=== PATIENT | male | born 1995 | race Caucasian/White ===

== ENCOUNTER 2017-09-30 13:15 | Inpatient (IN) | payer OTHER ==
--- NOTE | 2017-09-30 14:40 | RAD ---
SINGLE VIEW OF THE CHEST: COMPARISON: None. HISTORY: Diabetic ketoacidosis. FINDINGS: Single view of the chest shows a normal sized cardiomediastinal silhouette. There is no evidence of c onsolidation, mass, or pleural effusion. The bones are unremarkable. IMPRESSION: No evidence of acute cardiopulmonary disease. POS: [facility]
[2017-09-30 14:48] LABS: #Lymphocytes 1.6 thou/uL (1.20-3.40); #Monocytes 0.6 thou/uL (0.11-0.59); %Basophils 0.3 % (0.0-1.0); %Eosinophils 0.4 % (0.0-10.0); %Lymphocytes 17.1 % (28.0-48.0); %Monocytes 6.6 % (0.0-4.0); Hematocrit 49.2 % (42.0-52.0); Mean Platelet Volume 9.5 fL (7.4-10.4); White Blood Cell (WBC) Count 9.3 thou/uL (4.8-10.8)
[2017-09-30 14:57] LABS: Anion Gap 10 mmol/L (-14-95); Critical Call POC Critical Value; T. Carbon Dioxide 12.8 mmol/L (1.0-85.0); pH (Venous) 7.355 (7.35-7.45); vO2 Saturation-calc 98.4 % (0.0-100.0)
[2017-09-30] MEDS ORDERED: Ondansetron HCl/PF 4 MG/2 ML Vial ONE (15:12)
[2017-09-30 15:48] LABS: Bilirubin Negative (Negative); Blood, Urine Negative (Negative); Glucose, Urine (Dipstick) 100 mg/dL (Negative); Ketone, Urine > or equal to 80 mg/dL (Negative); Nitrite Negative (Negative); Protein, Urine (Dipstick) 30 mg/dL (Neg-Trace); Urobilinogen 0.2 mg/dL (0.2-1.0)
[2017-09-30 15:51] LABS: Bacteria/HPF None Seen HPF (None Seen); Hyaline Casts/LPF 0-3 HYALINE CAST LPF (0-3 Hyaline); RBC/HPF None Seen HPF (0-3); Squamous Epithelial None Seen HPF (0-3); WBC/HPF 0-3 HPF (0-3)
[2017-09-30] MEDS ORDERED: Calcium Gluconate 13.8 MEQ in Sodium Chloride 0.9% 100 ML IVPB SCH (16:15)
[2017-09-30 16:30] LABS: ALT (SGPT) 23 U/L (8-55); AST (SGOT) 21 U/L (5-34); Alkaline Phosphatase 75 U/L (Less than 750); Anion Gap 20 mmol/L (10-20); BUN (Urea Nitrogen) 8 mg/dL (8.9-20.6); Bilirubin, Total 1.1 mg/dL (0.2-1.2); Calc. Creatinine Clearance 0 mL/min (70-130); Calcium 9.2 mg/dL (7.8-10.44); Carbon Dioxide 17 mmol/L (22-29); Chloride 95 mmol/L (98-107); Estimated GFR-MDRD Greater than 90; Globulin 2.5 g/dL (2.4-3.5); Lipase 6 U/L (8-78); Protein, Total 6.9 g/dL (6.0-8.3)
[2017-09-30] MEDS ORDERED: D5 1/2 NS w/20 mEq KCL 1,000 ML ONE (17:18)
[2017-09-30] MEDS ORDERED: Insulin Regular 100 units/100 ml in NS IVPB SCH (17:30)
--- NOTE | 2017-09-30 21:18 | HP-2 ---
CODE STATUS: FULL. PRIMARY CARE PHYSICIAN: Fabiola zee. ATTENDING PHYSICIAN: Rc Case M.D. PGY1: Dannielle Villagomez D.O. CHIEF COMPLAINT: Nausea, vomiting, abdominal pain, and headache. HISTORY OF PRESENT ILLNESS: This is a 22-year-old male with past medical history of type 1 diabetes mellitus that presents with a 1 day history of generalized weakness, nausea, vomiting, abdominal pain, and headache. He said onset was around 1:00 p.m. yesterday. The patient has a history of being in DKA and admits to being noncompliant with checking blood glucose levels. He knows the signs and symptoms of DKA and decided to attempt self-treatment. He gave himself 30 units of NovoLog at home and drank ten 32 ounce bottles of water. The patient says he has been taking basal insulin, but he is noncompliant with mealtime insulin here recently due to excess stress. The patient started feeling worse and noted that there was some ketones in his urine , so he decided to present to the emergency department. He was given Zofran in the ED as well as 1 liter of normal saline. PAST MEDICAL HISTORY: Type 1 diabetes mellitus. PAST SURGICAL HISTORY: None. ALLERGIES: No known drug allergies. MEDICATIONS: The patient is on Novolin sliding scale insulin 1 unit for every 8 grams of carbohydrates as well as a Lantus equivalent 45 units at bedtime. FAMILY HISTORY: Noncontributory. SOCIAL HISTORY: The patient denies tobacco, alcohol, or drug use. 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 REVIEW OF SYSTEMS: A 12 point review of systems was performed, all were negative except as listed in the HPI. PHYSICAL EXAMINATION: VITAL SIGNS: Blood pressure 124/80, pulse 66, respiratory rate 18, T-max 97.6, pulse ox 100% on room air, current weight 80 kilograms. GENERAL: The patient is alert and oriented x3, no acute distress, well- developed, well-nourished, and thin. He is appropriately interactive. EYES: Extraocular muscles intact. ENT: The patient does have dry mucous membranes. NECK: Supple. CARDIOVASCULAR: Regular rate and rhythm. No murmur or gallops. Radial pulses 2+. RESPIRATORY: Normal effort, no retractions. Clear to auscultation bilaterally. SKIN: Skin is warm and dry. No cyanosis or lesions. ABDOMEN: Soft, nontender to palpation. Bowel sounds positive in all 4 quadrants. No masses or distention. EXTREMITIES: No clubbing, cyanosis or edema. MUSCULOSKELETAL: Structure within normal limit. Tone within normal limits. Muscle strength 5/5. The patient has full range of motions. NEUROLOGIC: No focal deficits. Sensation within normal limit. DTRs 4/4. Cranial nerves II-XII intact. GCS 15. PSYCHIATRIC: Appropriate. LABORATORY FINDINGS: 1. CBC reveals white blood cell count 9.3, hemoglobin 17.2, hematocrit 49.2, platelets 199. 2. CMP reveals sodium 128, potassium 3.9, chloride 95, bicarb 17, BUN 8, creatinine 0.89 and glucose of 116, calcium 9.2, total protein 6.9, albumin 4.4 , total bilirubin 1.1, AST 21, ALT 23, and alkaline phosphatase is 75. 3. Lipase 6. 4. UA reveals protein of 30, ketones greater than 80 and glucose of 100. 5. ABG: pH 7.35, pCO2 of 21.6 and O2 of 112. 6. Beta-hydroxybutyrate of 5.80. 7. EKG shows possible right bundle branch block. ASSESSMENT AND PLAN: This is a 22-year-old female with past medical history of diabetes mellitus type 1 that presents with nausea, vomiting, abdominal pain, and headache. 1. Diabetic ketoacidosis. The patient was admitted to [facility] and started on diabetic ketoacidosis protocol. We will transition off drip and to subcutaneous insulin once gap closes and bicarbonate increases. We will continue intravenous fluids per protocol and repeat basic metabolic panel q.4 hours. The patient will have q.1 hour Accu-Cheks while on the drip. Hemoglobin A1c is pending. 2. Hyponatremia. This is likely secondary to increase free water intake. We will continue to monitor basic metabolic panel and decrease free water intake at this time. 3. Type 1 diabetes mellitus. The patient takes sliding scale mealtime insulin as well as basal insulin. Once labs normalized, we will restart the patient on home dose. The patient will be transitioned to subcutaneous insulin and will be able to have an [employer] diet at that time. DISPOSITION AND LENGTH OF HOSPITAL STAY: Two days. Symptomatic medication will be provided. History and physical examination as well as management discussed with Dr. Rc Case. MTDD
[2017-09-30] MEDS ORDERED: NS 0.9% w/ 20 MEQ KCL 1,000 ML IV PRN ×2 (21:56)
[2017-09-30] MEDS ORDERED: Ondansetron HCl/PF 4 MG/2 ML Vial IVP PRN (21:56)
[2017-09-30] MEDS ORDERED: Acetaminophen 325 MG TAB PO PRN (21:56)
[2017-09-30] MEDS ORDERED: CCU Electrolyte Replacement 1 EACH IVPB ONE (21:56)
[2017-09-30] MEDS ORDERED: Dextrose 5 %-0.45 % NaCl 1,000 ML IV PRN (21:56)
[2017-09-30] MEDS ORDERED: Sodium Chloride 0.9% 1,000 ML IV PRN ×4 (21:56)
[2017-09-30] MEDS ORDERED: Ondansetron ODT 4 MG TAB PO PRN (21:56)
[2017-09-30] MEDS ORDERED: D5 1/2 NS w/20 mEq KCL 1,000 ML IV PRN (21:56)
[2017-09-30 21:58] LABS: Anion Gap 14 mmol/L (10-20); BUN (Urea Nitrogen) 6 mg/dL (8.9-20.6); Calc. Creatinine Clearance 0 mL/min (70-130); Calcium 9.4 mg/dL (7.8-10.44); Carbon Dioxide 20 mmol/L (22-29); Chloride 106 mmol/L (98-107); Estimated GFR-MDRD Greater than 90
[2017-09-30] MEDS ORDERED: Potassium Chloride 40 MEQ in Premix Bag 1 BAG IVPB PRN (22:06)
[2017-09-30] MEDS ORDERED: Potassium Phosphate 9 MMOL in Sodium Chloride 0.9% 100 ML IVPB PRN (22:06)
[2017-09-30] MEDS ORDERED: Potassium Phosphate 12 MMOL in Sodium Chloride 0.9% 250 ML 250 ML IV PRN (22:06)
[2017-09-30] MEDS ORDERED: Potassium Phosphate 15 MMOL in Sodium Chloride 0.9% 250 ML 250 ML IV PRN (22:06)
[2017-09-30] MEDS ORDERED: Magnesium Oxide 400 MG TAB PO PRN ×2 (22:06)
[2017-09-30] MEDS ORDERED: Potassium Chloride 40 MEQ in Sodium Chloride 0.9% 250 ML 250 ML IVPB PRN (22:06)
[2017-09-30] MEDS ORDERED: Potassium Chloride 20 MEQ TAB PO PRN (22:06)
[2017-09-30] MEDS ORDERED: Magnesium 2 GM/NS 0.9% 100 ML 2 GM in Premix Bag 1 BAG IVPB PRN (22:06)
[2017-09-30] MEDS ORDERED: CCU ELECTROLYTE REPLACEMENT PROTOCOL FS PRN (22:06)
[2017-09-30 22:17] LABS: Hemoglobin A1c 10.8 % (4.0-6.0)
[2017-09-30 23:24] VITALS: BMI 25.5
[2017-10-01] MEDS ORDERED: Insulin Detemir 100 UNITS/ML 20 UNITS in Pre-Filled Syringe 1 EACH SC SCH (02:00)
[2017-10-01 02:13] LABS: Anion Gap 12 mmol/L (10-20); BUN (Urea Nitrogen) 5 mg/dL (8.9-20.6); Calc. Creatinine Clearance 158 mL/min (70-130); Calcium 9.3 mg/dL (7.8-10.44); Carbon Dioxide 21 mmol/L (22-29); Chloride 108 mmol/L (98-107); Estimated GFR-MDRD Greater than 90
[2017-10-01] MEDS: 1/2 NS w/KCL 20 mEq 1,000 ML IV SCH ×2 (02:32→08:21)
[2017-10-01 06:06] LABS: Anion Gap 12 mmol/L (10-20); BUN (Urea Nitrogen) 4 mg/dL (8.9-20.6); Calc. Creatinine Clearance 162 mL/min (70-130); Calcium 9.1 mg/dL (7.8-10.44); Carbon Dioxide 21 mmol/L (22-29); Chloride 110 mmol/L (98-107); Estimated GFR-MDRD Greater than 90
--- NOTE | 2017-10-01 06:26 | PDOC.FM ---
- Subjective Subjective: Patient had a good night. He knew that his DM1 wasn't under good control, but he didn't know it was that bad. He denies abdominal pain, n/v/d. He denies chest pain, sob, fever or chills. He was counseled heavily on the need for better control of his diabetes. He expressed understanding. He had no other complaints at this time. - Objective Vital Signs & Weight: Vital Signs (12 hours) Temp Pulse Resp BP Pulse Ox 10/01/17 04:00 98.5 F 87 14 107/52 L 97 10/01/17 00:00 98.8 F 80 16 107/71 99 09/30/17 21:50 98.4 F 85 18 121/60 99 Weight Weight 80.83 kg I&O: 09/29/17 09/30/17 10/01/17 06:59 06:59 06:59 Intake Total 1805 Output Total 1625 Balance 180 Result Diagrams: 09/30/17 14:43 10/01/17 05:45 Phys Exam - Physical Examination HEENT: PERRLA, moist MMs Neck: no nodes, no JVD Respiratory: no wheezing, clear to auscultation bilateral Cardiovascular: RRR, no significant murmur Gastrointestinal: soft, non-tender, no distention Musculoskeletal: no edema, pulses present Neurological: non-focal, normal sensation, moves all 4 limbs Psychiatric: normal affect, A&O x 3 Skin: no rash Dx/Plan (1) DKA (diabetic ketoacidoses) Code(s): E13.10 - [facility] DIABETES MELLITUS WITH KETOACIDOSIS WITHOUT COMA Status : Acute Plan: -s/p insulin drip -Anion Gap currently 8 -Bicarbonate 21 -Will transfer to [facility] floor (2) DM type 1 (diabetes mellitus, type 1) Status: Chronic Plan: -Patient takes Lantus equivalent of 45 u at night with Novolin SSI before meals. -Obviously non compliant with HgbA1C of 10.8 -Will initiate new regimen -Will need close outpatient follow up. -Counseled heavily on having tighter glycemic control. Expressed understanding -Will establish PCP in [facility] for close follow up. - Plan Plan: Patient may be able to be discharged today. Will school adjustment counselor on compliance of medications.
[2017-10-01 07:36] VITALS: BP 103/61; TEMP 98.4
[2017-10-01] MEDS ORDERED: Insulin Detemir 100 UNITS/ML 22 UNITS in Pre-Filled Syringe 1 EACH SC SCH ×2 (09:00→21:00)
[2017-10-01] MEDS ORDERED: FLU VACC QS2017-18 36 mo. & older 0.5 ML SYRINGE IM ONE (09:00)
--- NOTE | 2017-10-01 11:12 | ADD-PRG ---
DATE OF SERVICE: 10/01/2017 This is an addendum to the note of Dr. Asif Masters. Mr. King is a 22-year-old type 1 diabetic who was admitted through the ER and very early diabetic ke toacidosis. He also appeared at least initially, he had have an acute hyponatremia from water intoxi cation having drank prior coming to the ER ten 32 ounce bottles of water in an effort to combat his D KA. In the event, he was admitted to the [facility] and this morning he is completely awake and alert. He is in no distress at all. He is alert and oriented. His labs this morning reveal a sodium of 139 h aving risen from 123 yesterday afternoon. His bicarbonate is now 21. His anion gap is 12 and his bl ood glucose is 84. His very early DKA has resolved and he is ready for discharge.
--- NOTE | 2017-10-01 11:58 | DIS-2 ---
DATE OF ADMISSION: 09/30/2017 DATE OF DISCHARGE: 10/01/2017 RESIDENT: Dr. Masters. ADMITTING ATTENDING: Dr. Jimenez. DISCHARGE ATTENDING: Dr. Ruelas. CONSULTATION: Pulmonology, Dr. Singleton. PROCEDURE: The patient underwent a chest x-ray on 09/30/2017, showed no evidence of consolidation, mass, or pleural effusion. The bones are unremarkable. PRIMARY DIAGNOSES: 1. Diabetic ketoacidosis. 2. Diabetes mellitus, type 1. DISCHARGE MEDICATIONS: 1. Insulin Basaglar 45 units subcu at bedtime 2. NovoLog subcu a.c. DISCONTINUED MEDICATIONS: None. HISTORY OF PRESENT ILLNESS AND HOSPITAL COURSE: This is a 22-year-old male with past medical history of type 1 diabetes mellitus that presents with a 1- day history of generalized weakness, nausea, vomiting, abdominal pain, and headache. He said onset was around 1:00 p.m. yesterday. The patient has a history of being in DKA and admits to being noncompliant with checking blood glucose levels. He knows the signs and symptoms of DKA and decided to attempt self-treatment. He gave himself 30 units of NovoLog at home and then drank ten 32 ounce bottles of water. The patient says he has been taking basal insulin, but he is noncompliant with mealtime insulin recently due to excess stress. The patient started feeling worse and noted there were some ketones in his urine , so he decided to present to the emergency department. He was given Zofran in the ED as well as 1 liter of normal saline. During the hospitalization, the patient was placed on the insulin drip until his anion gap was closed. The patient had a slight anion gap of 16 on admission. The patient did have a beta hydroxybutyrate level of 5.80 on admission. His urinalysis was also unremarkable for 30 protein, 100 of glucose , and greater than or equal to 80 for ketones. The patient had a VBG that showed 7.355 of pH, pCO2 of 21.6, and a pO2 of 112.5. The patient was then discontinued on the insulin drip once his gap was closed and his bicarbonate level had normalized to above 18. Patient, otherwise, had no other complications. The patient did have an extensive conversation about his noncompliance with his insulin regimen. The patient stated he had some depressive issues that following a breakup with his girlfriend and some stress from school that made him not as compliant as he should be. A lot of the complications and risks and benefits of his insulin treatment for his diabetes mellitus, type 1, were discussed with the patient and he expressed understanding and said that he would be willing to set up with a primary care physician in town since his mother and his primary care physician at home is in [place] and he does not see them very often. The patient, otherwise, was able to tolerate p.o. His lab values normalized and we will be discharging him on his current home regimen of insulin until he can set up with a primary care physician. It was also stressed to him that he needs to have daily glucose checks to monitor his disease to make sure that he does not have any more complications from his condition. The patient, otherwise, tolerated the hospitalization well, had no further complication, and was discharged on appropriate condition. DISPOSITION: Stable. DISCHARGE INSTRUCTIONS: 1. Location: He will be discharged to home into his own care. 2. Diet: Will be a diabetic diet. 3. Activity: As tolerated with no restrictions. 4. Followup: Will be with [facility] within 1 week to establish care and to coordinate his diabetes mellitus type 1 treatment going forward in the future. He has got a lot of bright future ahead of him hoping that he does as well as he can and manages this disease. We hope and wished him the best of luck and we will follow him going forward. [facility]
== END 2017-10-01 11:10 | disposition home or self-care (01) | DRG 638 ==
LOC: ERS 13:15 → ERHOLD 17:20 → IMCU/EMU 21:53
PROVIDERS: ADMIT Family Medicine; ATTEND Family Medicine
DX: E10.10 Type 1 diabetes mellitus with ketoacidosis without coma (principal); E87.1 Hypo-osmolality and hyponatremia; Z79.4 Long term (current) use of insulin
CPT/HCPCS: 36415; 36416; 71010; 80048; 80053; 81003; 81015; 82010; 82330; 82803; 83036; 83690; 85025; 93005; 93010; 96361; 96365; 96366; 96375; J1815; J2405; J7050